=== PATIENT | female | born 1970 | race Caucasian/White ===

== ENCOUNTER 2016-08-02 05:59 | Emergency (ER) | payer OTHER ==
--- NOTE | ~2016-08-02 | CR230 ---
[facility] A Service of [facility] RADIOLOGY TEXT RESULTS PATIENT: JAVIER NEWTON [place] [facility] [place] 72 UNIT #: [id number] AGE: [address]: Dio Juarez MD SEX: F ORDER DR: [id number] [place] [id number] E MR#: [id number] Acc #: [id number] NAME: JAVIER NEWTON. : 1970 SEX: F STUDY DATE/TIME: 08/02/2016 5:37 UNIT: SED ROOM: STUDY DESCRIPTION: CR Shoulder Min 2 View Rt Attending Physician: Dio Juarez M.D. Ordering Physician: Dio Juarez M.D. Primary Care Physician: Sloan Grijalva M.D. MEDICAL IMAGING REPORT This report is preliminary unless electronic signature is present. EXAM 3 views right shoulder 08/02/2016 HISTORY Right shoulder pain which began last evening after sweeping floor. COMPARISON Right shoulder x-rays 05/21/2009. FINDINGS No acute fracture, joint dislocation or definite joint effusion is identified. The glenohumeral joint space is well preserved. Crescentic calcification is seen adjacent to the humeral head which may represent changes of calcific tendinosis, and has a similar appearance to the 05/21/2009 examination. Imaged right lung appears clear. Imaged right ribs appear intact. There is no acromioclavicular or coracoclavicular separation. No osteolytic or osteoblastic abnormalities are identified. Previously described increased density within the humeral head is less conspicuous on today's examination. IMPRESSION 1. No acute abnormality of the right shoulder. 2. 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 Dictated by... Rubia Craig M.D. THIS IS AN ELECTRONICALLY VERIFIED REPORT [facility] A Service of [facility] RADIOLOGY TEXT RESULTS PATIENT: JAVIER NEWTON [id number] 72 UNIT #: [id number] AGE: [address]: Dio Juarez MD SEX: F ORDER DR: Rubia Craig M.D. at 08/02/2016 9:59 PM REED/bennie TD: 08/02/2016 07:04 JOB #: [id number] MEDICAL IMAGING REPORT Page 1 of 1
[~2016-08-02 05:59] MED LIST: BACLOFEN; NO MEDICATIONS; PARAFON FORTE500 M2 PO; VOLTAREN50 MG PO; VOLTAREN75 MG PO; ZANAFLEX4 M1 PO
== END 2016-08-02 06:21 | disposition home or self-care (01) ==
LOC: SED 05:59
DX: S46.811A Strain of other muscles, fascia and tendons at shoulder and upper arm level, right arm, initial encounter (principal); F41.9 Anxiety disorder, unspecified; F17.200 Nicotine dependence, unspecified, uncomplicated; Z88.6 Allergy status to analgesic agent; X58.XXXA Exposure to other specified factors, initial encounter; Y93.89 Activity, other specified; Y92.9 Unspecified place or not applicable
CPT/HCPCS: 73030; 96372; 99283; J1885

== ENCOUNTER 2016-09-13 14:05 | Emergency (ER) | payer OTHER ==
--- NOTE | ~2016-09-13 | CT52 ---
[facility] A Service of [facility] RADIOLOGY TEXT RESULTS PATIENT: JAVIER NEWTON LOCATION: SED : 72 UNIT #: [id number] AGE: [address]: Ivon Nunes SEX: F ORDER DR: [id number] [place] [id number] E MR#: [id number] Acc #: [id number] NAME: JAVIER NEWTON. : 1970 SEX: F STUDY DATE/TIME: 09/13/2016 14:50 UNIT: SED ROOM: STUDY DESCRIPTION: CT Cervical Spine Wo Cont Attending Physician: Ivon Nunes Pa-C Ordering Physician: Ivon Nunes Pa-C Primary Care Physician: Sloan Grijalva M.D. MEDICAL IMAGING REPORT This report is preliminary unless electronic signature is present. EXAM CT of the cervical spine without contrast dated 09/13/2016. COMPARISON None HISTORY Right-sided neck pain for 2 days following fall. Head and neck pain. TECHNIQUE CT of the C-spine was obtained without contrast in the axial plane followed by sagittal and coronal reformats. This CT exam was performed with one or more of the following radiation dose reduction techniques: automatic exposure control, adjustment of mA and/or kV according to patient size, and iterative reconstruction. FINDINGS No acute displaced fracture or subluxation is seen. Facet hypertrophic changes are noted at multiple levels, relatively worse at C4-5, C5-6. No focal significant disc herniation, canal stenosis, or neural foraminal narrowing, particularly discerned. Surrounding soft tissues do not demonstrate any significant abnormality. 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 IMPRESSION 1. No acute fracture or subluxation. 2. Facet hypertrophic changes are noted bilaterally at C4-5 and C5-6, relatively worse on the right side. [facility] A Service [facility] RADIOLOGY TEXT RESULTS PATIENT: JAVIER NEWTON LOCATION: SED : 72 UNIT #: [id number] AGE: [address]: Ivon Nunes SEX: F ORDER DR: Dictated by... Alize Corona M.D. THIS IS AN ELECTRONICALLY VERIFIED REPORT Alize Corona M.D. at 09/13/2016 9:31 PM CPR/tmw TD: 09/13/2016 16:35 JOB #: [id number] MEDICAL IMAGING REPORT Page 1 of 1
--- NOTE | ~2016-09-13 | CT71 ---
[facility] A Service of [facility] RADIOLOGY TEXT RESULTS PATIENT: JAVIER NEWTON LOCATION: SED : 72 UNIT #: [id number] AGE: [address]: Ivon Nunes SEX: F ORDER DR: [id number] [place] [id number] E MR#: [id number] Acc #: [id number] NAME: JAVIER NEWTON : 1970 SEX: F STUDY DATE/TIME: 09/13/2016 14:41 UNIT: SED ROOM: STUDY DESCRIPTION: CT Head Wo Contrast Attending Physician: Ivon Nunes Pa-C Ordering Physician: Ivon Nunes Pa-C Primary Care Physician: Sloan Grijalva M.D. MEDICAL IMAGING REPORT This report is preliminary unless electronic signature is present. EXAM CT head without contrast dated 09/13/2016 COMPARISON None HISTORY Posterior headache and neck pain for 2 days post fall. TECHNIQUE This CT exam was performed with one or more of the following radiation dose reduction techniques: automatic exposure control, adjustment of mA and/or kV according to patient size, and iterative reconstruction. FINDINGS CT of the head was obtained without contrast in the axial plane. Axial noncontrast images were obtained from the skull base to the vertex. Ventricular size and configuration are normal. There is no evidence of acute infarct or hemorrhage. There are no extraaxial fluid collections. No mass lesion or mass effect is seen. There are no skull fractures. Nasal septum is deviated to the left with bilateral ethmoid sinus mucosal thickening. No bony fracture, acute intracranial hemorrhage or obvious significant scalp soft tissue swelling. IMPRESSION Normal noncontrast head CT. Dictated by... Alize Corona M.D. THIS IS AN ELECTRONICALLY VERIFIED REPORT Alize Corona M.D. at 09/13/2016 9:31 PM [facility] A Service of [facility] RADIOLOGY TEXT RESULTS PATIENT: JAVIER NEWTON LOCATION: SED : 72 UNIT #: [id number] AGE: [address]: Ivon Nunes SEX: F ORDER DR: Neli TD: 09/13/2016 16:13 JOB #: [id number] MEDICAL IMAGING REPORT Page 1 of 1
[2016-09-13] MEDS ORDERED: ULTRAM (14:20)
== END 2016-09-13 16:10 | disposition home or self-care (01) ==
LOC: SED 14:05
DX: S16.1XXA Strain of muscle, fascia and tendon at neck level, initial encounter (principal); F41.9 Anxiety disorder, unspecified; F32.9 Major depressive disorder, single episode, unspecified; F17.210 Nicotine dependence, cigarettes, uncomplicated; W18.00XA Striking against unspecified object with subsequent fall, initial encounter; Y92.009 Unspecified place in unspecified non-institutional (private) residence as the place of occurrence of the external cause
CPT/HCPCS: 70450; 72125; 87651; 99284